=== PATIENT | male | born 2000 | race Caucasian/White ===

== ENCOUNTER 2021-05-02 16:09 | Emergency (ER) | payer OTHER ==
[~2021-05-02] VITALS: Ht 180.3 cm; Wt 127.0 kg
[2021-05-02] MEDS ORDERED: Cyclobenzaprine5 MG PO (19:48)
== END 2021-05-02 19:56 | disposition home or self-care (01) ==
LOC: ER 16:09
DX: R07.89 Other chest pain (principal); M62.838 Other muscle spasm; M54.6 Pain in thoracic spine; I10 Essential (primary) hypertension; F41.9 Anxiety disorder, unspecified; R06.02 Shortness of breath; Z88.0 Allergy status to penicillin; Z79.899 Other long term (current) drug therapy
CPT/HCPCS: 71046; 93005; 93010; 96372; 99283-25; J1885